=== PATIENT | male | born 1985 | race Caucasian/White ===

== ENCOUNTER 2017-04-19 20:05 | Emergency (ER) | payer OTHER ==
[2017-04-19] MEDS ORDERED: Propofol 200 MG/20 ML SDV IVPUSH ONE (20:11)
[2017-04-19] MEDS ORDERED: fentaNYL 100 MCG/2 ML SDV IVPUSH ONE (20:11)
[2017-04-19] MEDS ORDERED: fentaNYL 100 MCG/2 ML SDV ONE (20:12)
[2017-04-19 20:59] VITALS: BP 111/75
--- NOTE | 2017-04-19 21:45 | EDM.PDOC ---
[id number] Complaint: R FOOT DISLOCATION Time Seen by Provider: 04/19/17 21:00 Source of Information: Reports: Patient, Family History Limitations: Reports: No Limitations - History of Present Illness INITIAL COMMENTS - FREE TEXT/NARRATIVE: 32-year-old male with a right foot injury when he landed playing volleyball and turned his right foot and has an obvious deformity and dislocation. He is unable to bear weight. No other injury. Onset: Sudden Duration: Hour(s): (Within the last hour) Severity: Severe Associated Symptoms: Reports: No Other Symptoms - Related Data Allergies Allergy/AdvReac Type Severity Reaction Status Date / Time No Known Allergies Allergy Verified 04/19/17 20:48 Home Meds: Home Meds Atenolol 04/19/17 [History] Citalopram Hydrobromide [Celexa] 04/19/17 [History] Terazosin [Hytrin] 04/19/17 [History] Past Medical History Cardiovascular History: Reports: Hypertension Psychiatric History: Reports: PTSD Social & Family History - Tobacco Use Smoking Status *Q: Current Every Day Smoker Years of Tobacco use: 15 Packs/Tins Daily: 1 Review of Systems - Review of Systems Review Of Systems: See Below Constitutional: Denies: Fever Respiratory: Denies: Shortness of Breath Cardiovascular: Denies: Chest Pain GI/Abdominal: Denies: Abdominal Pain Skin: Reports: Other (Some blanching over the foot due to stretching of the skin ) ED EXAM, GENERAL - Physical Exam Exam: See Below Exam Limited By: No Limitations General Appearance: Alert, Moderate Distress Respiratory/Chest: No Respiratory Distress Cardiovascular: Regular Rate, Rhythm Extremities: Other (Exam is otherwise limited to the lower extremities. The right foot has obvious deformity with the forefoot dislocated medially. He can still move his toes and there is a faint dorsalis pedis pulse present.) Course - Vital Signs Last Recorded V/S: Last Vital Signs Temp 97.2 F 04/19/17 20:57 Pulse 62 04/19/17 20:57 Resp 16 04/19/17 20:57 BP 111/75 04/19/17 20:57 Pulse Ox - Orders/Labs/Meds Orders: Active Orders 24 hr Category Date Time Status Ankle Min 3V Rt [CR] Stat Exams 04/19/17 20:13 Taken Ankle Min 3V Rt [CR] Stat Exams 04/19/17 20:41 Taken Meds: Medications Discontinued Medications Generic Name Dose Route Start Last Admin Trade Name Tatiana PRN Reason Stop Dose Admin Fentanyl 50 mcg 04/19/17 20:11 04/19/17 22:58 Sublimaze IVPUSH 04/19/17 20:12 50 mcg ONETIME ONE Administration Fentanyl Confirm 04/19/17 20:12 Sublimaze Administered 04/19/17 20:13 Dose 100 mcg .ROUTE .STK-MED ONE Propofol Confirm 04/19/17 20:12 Diprivan 100 Ml Administered 04/19/17 20:13 Dose 100 mls @ as directed .ROUTE .STK-MED ONE Propofol 100 mg 04/19/17 20:11 04/19/17 23:02 Diprivan 20 Ml IVPUSH 04/19/17 20:12 200 mg ONETIME ONE Administration - Re-Assessments/Exams Free Text/Narrative Re-Assessment/Exam: 04/20/17 01:43 A real estate development manager film shows a subtalar dislocation. An IV was started and the patient was given 50 g of fentanyl followed by 200 mg of propofol. Under moderate sedation the foot was reduced, postreduction x-ray was taken which showed anatomical reduction. Posterior splint was applied to the foot, the patient was supplied crutches and given 20 Vicodin to use for pain control as needed for pain not covered by anti-inflammatories. He will recheck with orthopedics when he gets home. Departure - Departure Time of Disposition: 23:06 Disposition: Home, Self-Care 01 Condition: Good Clinical Impression: Dislocation of right subtalar joint Qualifiers: Encounter type: initial encounter Qualified Code(s): S93.314A - Dislocation of tarsal joint of right foot, initial encounter - Discharge Information Instructions: Ankle Dislocation, [id number], Ankle Pain Referrals: PCP,None [Primary Care Provider] - Forms: ED Department Discharge Care Plan Goals: Use crutches and do not weight bear until you are rechecked by orthopedics when you get home. Ibuprofen or naproxen for pain, elevate the foot, and take stronger pain medications if needed. - My Orders Last 24 Hours: My Active Orders 04/19/17 20:13 Ankle Min 3V Rt [CR] Stat 04/19/17 20:41 Ankle Min 3V Rt [CR] Stat - Assessment/Plan Last 24 Hours: My Active Orders 04/19/17 20:13 Ankle Min 3V Rt [CR] Stat 04/19/17 20:41 Ankle Min 3V Rt [CR] Stat
--- NOTE | 2017-04-21 09:26 | CR ---
Right ankle pre and post reduction Initial images demonstrate dislocation of the subtalar joint. Following closed reduction there is concepcion ccessful alignment. No fracture is demonstrated. Impression: 1. Subtalar dislocation with successful reduction.
== END 2017-04-19 23:07 | disposition home or self-care (01) ==
LOC: JP.ED 20:05
PROC: 2W3SX1Z Immobilization of Right Foot using Splint (ICD-10-PCS; principal; 2017-04-19)
DX: S93.314A Dislocation of tarsal joint of right foot, initial encounter (principal); I10 Essential (primary) hypertension; F17.210 Nicotine dependence, cigarettes, uncomplicated; W01.0XXA Fall on same level from slipping, tripping and stumbling without subsequent striking against object, initial encounter; Y93.68 Activity, volleyball (beach) (court)
CPT/HCPCS: 28575; 73610; 99284; J2704; J3010; 28570-RT; J3490